=== PATIENT | male | born 1980 | race Caucasian/White ===

== ENCOUNTER 2023-07-02 15:27 | Outpatient (CLI) | payer OTHER, SELFPAY ==
--- NOTE | ~2023-07-02 | XR_ITS ---
XR ankle RT min 3V DATE: 07/02/2023 15:50 INDICATION: Right ankle pain TECHNIQUE: 4 views COMPARISON: None FINDINGS: There is prominent soft tissue swelling of the ankle, greater medially. No fracture or dislocation of the ankle or disruption of the ankle mortise, periosteal reaction or sunil ne destruction is detected. IMPRESSION: Soft tissue swelling Reviewed, dictated and finalized at location B. IMPRESSION: Soft tissue swelling
== END 2023-07-02 15:28 ==
PROVIDERS: PCP Family Medicine; Visit Provider Physician Assistant
DX: R22.41 Localized swelling, mass and lump, right lower limb (principal)
CPT/HCPCS: 73610

== ENCOUNTER 2025-01-23 16:28 | Emergency (ER) | payer OTHER, SELFPAY ==
--- NOTE | ~2025-01-23 | XR_ITS ---
HISTORY: 3rd metacarpal tenderness, punched wall on Wednesday COMPARISON: None TECHNIQUE: 3 views of the right hand were performed. FINDINGS: No acute fracture is identified. The joint spaces are preserved. The carpal arcs are intact. Mild radiocarpal joint space narrowing with sclerosis of the distal radius is present. Bone mineralization is unremarkable. No significant soft tissue swelling. No radiopaque foreign body is identified. IMPRESSION: No acute fracture or dislocation within the right hand, as detailed above. Reviewed, dictated and finalized at location A.
--- NOTE | 2025-01-23 16:37 | ED_ITS ---
HPI - Extremity Injury (Upper) General Chief Complaint: Extremity Injury, Upper Stated Complaint: R Hand Pain Time Seen by Provider: 01/23/25 16:39 Source: patient, RN notes reviewed and old records reviewed Mode of arrival: ambulatory Limitations: no limitations History of Present Illness HPI narrative: 45-year-old male presents to the [facility] with complaints of right hand pain after punching a wall on Wednesday, 2 days ago. Swelling and bruising noted to the dorsal aspect right hand. Tenderness to the mid 3rd metacarpal Related Data Allergies Allergy/AdvReac Type Severity Reaction Status Date / Time No Known Allergies Allergy Verified 01/23/25 16:47 Review of Systems Review of Systems: All systems reviewed & are unremarkable except as noted in HPI and below Constitutional: Constitutional: Reports no additional constitutional complaints ENT: Reports system reviewed and no additional complaints, except as documented Cardiovascular: Cardiovascular: Reports no additional cardiovascular complaints, Denies chest pain and Denies dyspnea Respiratory: Respiratory: Reports no additional respiratory complaints, Denies chest congestion, Denies cough and Denies dyspnea Musculoskeletal: Musculoskeletal: Reports as per HPI, Reports arthralgias and Reports joint swelling Integumentary/Breasts: Skin/Breast: Reports system reviewed and no additional complaints, except as docu PMFSH Surgical History Surgical History Status post skin graft R knee Status post cervical spinal fusion Family History Family History Father Diabetes mellitus Hypertension Mother Diabetes mellitus Heart disease Hypertension Social History Social History Smoking packs per day: 1 Smoking cigarettes per day: 20.0 Years smoked: 25 Smoking pack-years: 25.00 Smoking status: Never smoker Tobacco type: cigarettes Second hand tobacco smoke exposure: No Alcohol intake: current Drinks per week: 8 Substance use: never Substance use type: does not use Living arrangements: with family Occupation/Education: occupation Gender identity (if verbalized by the patient): Male Sexual Orientation (if Verbalized by the Patient): Straight or Heterosexual Comments At the time of my signature, I reviewed and agree with the nursing past medical, surgical, social, and family history. There is no relevant family history pertinent to the patient complaint. Exam Const: General: cooperative, healthy appearing, comfortable, no acute distress, well developed, alert and well nourished Nutritional Appearance: well nourished and obese Orientation/consciousness: patient oriented x3 Limitations: no limitations HENMT: Head: normal to inspection Eyes: General: appearance normal, both eyes and all related structures Alignment and Position: alignment normal Neck: Neck: normal visual inspection, full ROM, no lymphadenopathy and no meningeal signs Chest: Chest palpation & inspection: normal inspection of the chest Resp: Effort & Inspection: normal respiratory effort and able to speak in complete sentences Cardio: Rate: regular rate Skin: General skin exam: normal color and no rashes or lesions noted Neuro: General: patient oriented x3, gait normal, moves all extremities and no meningeal signs Cognition (Neuro): normal cognition Speech: normal speech Gait exam (Neuro): Normal gait present Extrem: General: normal to inspection, full ROM, capillary refill normal and normal gait Right upper extremity: full ROM, normal capillary refill and Extremity exam: right hand normal capillary refill, neuromotor exam normal wrist extension normal, thumb opposition normal, thumb IP flexion normal, thumb ADduction normal and fingers 2-5 ABduction normal, neurosensory exam normal, tendon exam normal of all digits, tenderness (Third metacarpal), vascular exam radial pulse present and normal capillary refill, normal ROM of fingers, swelling (Dorsal) and ecchymosis (Dorsal); no lacerations Psych: Appearance: grossly normal and well kempt Mental Status: mental status grossly normal Speech and movement: Normal speech and movement present and Clear speech present Affect: normal affect Attitude: cooperative Course Course Level of Care: Express Care Visit Vital Signs Vital signs: Vital Signs Temperature 98.2 F 01/23/25 16:38 Pulse Rate 81 01/23/25 16:38 Respiratory Rate 20 01/23/25 16:38 Blood Pressure 173/112 H 01/23/25 16:38 Pulse Oximetry 100 01/23/25 16:38 Oxygen Delivery Room Air 01/23/25 16:38 Temperature 98.2 F 01/23/25 16:38 Pulse Rate 81 01/23/25 16:38 Respiratory Rate 20 01/23/25 16:38 Blood Pressure 173/112 H 01/23/25 16:38 Pulse Oximetry 100 01/23/25 16:38 Oxygen Delivery Room Air 01/23/25 16:38 Reviewed MDM - Extremity Injury (Upper) MDM Narrative Medical decision making narrative: Patient sitting in exam room. Patient is nontoxic, vitals are stable except blood pressure elevated. Updated patient that he needs a follow-up with primary care provider. Has appointment in January. Patient with bruising, swelling to the dorsal hand, x-ray negative. Patient appropriate for outpatient treatment with close follow-up Discharge instructions reviewed with patient, as well as provided in writing per nursing staff. The instructions also include specific and strict return/GO TO THE ER as well as f/u information. All questions have been answered, and the patient deny any further questions with discharge and discharge plan. Some parts of this dictation were generated by voice recognition software and may contain typographical and/or grammatical inaccuracies. Differential Diagnosis Differential diagnosis: Likely other (Hand fracture, hand contusion) Imaging Data Radiologist's impression: HISTORY: 3rd metacarpal tenderness, punched wall on Wednesday COMPARISON: None TECHNIQUE: 3 views of the right hand were performed. FINDINGS: No acute fracture is identified. The joint spaces are preserved. The carpal arcs are intact. Mild radiocarpal joint space narrowing with sclerosis of the distal radius is present. Bone mineralization is unremarkable. No significant soft tissue swelling. No radiopaque foreign body is identified. IMPRESSION: No acute fracture or dislocation within the right hand, as detailed above. Critical Care Time Critical Care Time Critical Care Time: No Discharge Plan Discharge Clinical Impression: Contusion of hand, right Qualifiers: Encounter type: initial encounter Qualified Code(s): S60.221A - Contusion of right hand, initial encounter Patient Disposition: Home Condition: Stable Instructions: Contusion in Adults (ED) Additional Instructions: Today your blood pressure was 173/112, it is highly recommended that you follow- up with your primary care to have your blood pressure recheck within the next 2 weeks. Your Xray did not show a fracture. Ice should be applied to help reduce swelling. It can be used for 20 to 30 minutes, every 2-3 hours while awake. Do not apply ice directly to your skin. You can alternate ibuprofen 600mg and Tylenol 650mg every 4 hours as needed for pain Please schedule a follow-up visit with your personal physician for further evaluation and treatment within 2 weeks especially if symptoms persist. For new or worsening symptoms go directly to the emergency room Patient Language: Citizen Of [place] Prescriptions: No Action meloxicam 15 mg tablet 15 mg PO DAILY Qty: 30 0RF Zepbound 12.5 mg/0.5 mL pen injector 12.5 mg subcut WEEKLY Qty: 2 0RF Follow-up/Referrals: Helder House MD [Primary Care Provider[facility] Stand Alone Forms: Work/School Release IP Time of Disposition: 17:00
[2025-01-23 16:38] VITALS: BP 173/112; PULSE 81; RESP 20; TEMP 36.8; O2SAT 100
== END 2025-01-23 17:06 | disposition home or self-care (01) ==
PROVIDERS: Emergency Provider Nurse Practitioner; PCP Family Medicine
DX: S60.221A Contusion of right hand, initial encounter (principal); W22.09XA Striking against other stationary object, initial encounter; F17.210 Nicotine dependence, cigarettes, uncomplicated
CPT/HCPCS: 73130; 99213; G0463